=== PATIENT | male | born 1955 | race Caucasian/White ===

== ENCOUNTER → 2021-03-08 | Outpatient (CLI) | payer OTHER ==
[2016-02-25 12:20] VITALS: BP 140/90
[~2021-03-08] MED LIST: COLE1TAB2 PO; FLUO15CR TP; IRBE150T PO; PRAV40TA2 PO; TRAM50TA PO
[2021-03-08 09:32] LABS: CALCIUM 8.5 mg/dL (8.5-10.1); CREATININE 0.9 mg/dL (0.7-1.3); GFR 84.4; POTASSIUM 3.8 mmol/L (3.5-5.1)
[2021-03-08 10:00] LABS: PROTHROMBIN TIME PATIENT 12.7 SEC (11.7-14.0)
[2021-03-08 10:24] LABS: BASO % 0 % (0-3); EOS # 0.1 x10^3/uL (0.0-0.7); EOS % 2 % (0-3); HEMOGLOBIN 16.1 g/dL (13.0-17.5); LYMPH # 1.5 x10^3/uL (1.0-4.8); LYMPH % 19 % (24-48); MEAN CORPUSCULAR HEMOGLOBIN 34 pg (25-35); MEAN CORPUSCULAR HGB CONC 35 g/dL (31-37); MEAN CORPUSCULAR VOLUME 96 fL (79-100); MONO # 0.6 x10^3/uL (0.0-1.1); MONO % 8 % (0-9); NEUT # 5.5 x10^3/uL (1.8-7.7); NEUT % 71 % (31-73); PLATELET COUNT 147 x10^3/uL (140-400); RED BLOOD COUNT 4.78 x10^6/uL (4.30-5.70); RED CELL DISTRIBUTION WIDTH 13.7 % (11.5-14.5); WHITE BLOOD COUNT 7.8 x10^3/uL (4.0-11.0)
--- NOTE | 2021-03-08 12:15 | EKG ---
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
--- NOTE | 2021-03-08 13:19 | RAD ---
EXAM: Chest, 2 views. HISTORY: Hypertension. Preoperative evaluation. COMPARISON: None. FINDINGS: 2 views of the chest are obtained. There is no infiltrate, pleural fusion or pneumothorax. The heart is normal in size. IMPRESSION: No acute pulmonary finding. Electronically signed by: Erika Denney MD (03/08/2021 1:17 PM) [id number]
[2021-03-09 01:10] LABS: HEMOGLOBIN A1C 5.8 % (4.8-5.6)
== END ==
LOC: SURGPAT 11:45
PROVIDERS: ATTEND Orthopaedic Surgery Sports Medicine
DX: Z01.818 Encounter for other preprocedural examination (principal); M16.11 Unilateral primary osteoarthritis, right hip
CPT/HCPCS: 36415; 71046; 80048; 82306; 83036; 85025; 85610; 85651; 85730; 87641; 93005

== ENCOUNTER 2021-03-23 07:19 | Observation (INO) | payer OTHER, MEDICARE ==
[2021-03-11 14:43] VITALS: BP 156/96
[~2021-03-23] VITALS: Ht 182.9 cm; Wt 120.0 kg
[2021-03-23] VITALS (10 sets, daily range): BP systolic 114–168; BP diastolic 61–89
[~2021-03-23 07:19] MED LIST changes: +ACETAMINOPHEN 500 MG TABLET PO PRN; +HYDROmorphone 2 MG/ML VIAL IVP PRN; +MELOXICAM 7.5 MG TABLET PO PRN; +MORPHINE SULFATE 2 MG/ML INJ. IVP PRN; +MORPHINE SULFATE 5 MG, KETOROLAC 30MG VIAL 30 MG, ROPIVacaine 0.5% PF 60 ML, EPINEPHrin... INT ART ONE; +PROCHLORPERAZINE 10 MG/2 ML VIAL. IVP PRN; +TRANEXAMIC ACID 1,000 MG in IV NS 50ML -- 1ST BAG INJ ONE; +TRANEXAMIC ACID in NS IVPB 100 ML ONE; +VANCOMYCIN 1GM IVPB FOR OMNI 250 ML IV PRN; +fentaNYL PF VIAL 100 MCG/2 ML VIAL IVP PRN
[2021-03-23] MEDS ORDERED: 0.9 % SODIUM CHLORIDE 20 ML VIAL. IJ ONE ×2 (07:20)
[2021-03-23] MEDS ORDERED: TRANEXAMIC ACID 1,000 MG in IV NS 50ML -- 2ND BAG INJ ONE (08:00)
[2021-03-23] MEDS: IV RINGERS,LACTATED 1000ML 1,000 ML IV SCH ×2 (08:05→11:50)
[2021-03-23 08:19] LABS: PROTHROMBIN TIME PATIENT 12.7 SEC (11.7-14.0)
[2021-03-23] MEDS ORDERED: ONDANSETRON PF 4 MG/2 ML VIAL. ONE (08:29)
[2021-03-23] MEDS ORDERED: DEXAMETHASONE SOD PHOS 4 MG/ML VIAL ONE (08:29)
[2021-03-23] MEDS ORDERED: fentaNYL PF VIAL 100 MCG/2 ML VIAL ONE (08:29)
[2021-03-23] MEDS ORDERED: PROPOFOL 10 MG/ML (20ML) VIAL. IV ONE (08:29)
[2021-03-23] MEDS ORDERED: ROCURONIUM 50 MG/5 ML VIAL. ONE ×2 (08:29→09:35)
[2021-03-23] MEDS ORDERED: SEVOFLURANE 61 TO 120 MINUTES. IH ONE (08:29)
[2021-03-23] MEDS ORDERED: LIDOCAINE 2% PF 5 ML VIAL. ONE (08:29)
[2021-03-23] MEDS ORDERED: fentaNYL PF VIAL 100 MCG/2 ML VIAL IVP PRN (09:00)
[2021-03-23] MEDS ORDERED: 0.9 % SODIUM CHLORIDE 10 ML DISP.SYRIN. IV PRN (09:00)
[2021-03-23] MEDS ORDERED: CALCIUM CARBONATE 500 MG TAB.CHEW PO PRN (09:00)
[2021-03-23] MEDS ORDERED: MORPHINE SULFATE 2 MG/ML INJ. IVP PRN (09:00)
[2021-03-23] MEDS: MULTIVITAMIN with MINERAL TABLET. PO SCH (09:00)
[2021-03-23] MEDS ORDERED: diphenhydrAMINE 50 MG/ML VIAL IVP PRN (09:00)
[2021-03-23] MEDS ORDERED: traMADol 50 MG TABLET PO PRN (09:00)
[2021-03-23] MEDS ORDERED: ZOLPIDEM 5 MG TABLET. PO PRN (09:00)
[2021-03-23] MEDS ORDERED: METOCLOPRAMIDE HCL 10 MG/2 ML VIAL. IVP PRN (09:00)
[2021-03-23] MEDS ORDERED: PROCHLORPERAZINE 5 MG TABLET. PO PRN (09:00)
[2021-03-23] MEDS ORDERED: DEXTROSE 50% 25 GM / 50ML DISP.SYRIN. IV PRN (09:00)
[2021-03-23] MEDS ORDERED: VANCOMYCIN 1 GM in IV NORMAL SALINE 250ML 250 ML IV ONE ×2 (09:15→21:00)
[2021-03-23] MEDS ORDERED: KETAMINE HCL IN NACL, ISO-OSM 50 MG/5 ML SYRINGE ONE (09:16)
[2021-03-23] MEDS ORDERED: GLYCOPYRROLATE 1 MG/5 ML VIAL. ONE ×2 (09:18→11:01)
[2021-03-23] MEDS ORDERED: HYDROmorphone 2 MG/ML VIAL ONE (09:31)
[2021-03-23] MEDS ORDERED: SUCCINYLCHOLINE 200 MG/10 ML VIAL. ONE (09:57)
[2021-03-23] MEDS: COLESTIPOL HCL 1 GM TABLET PO SCH (10:00)
[2021-03-23] MEDS ORDERED: NEOSTIGMINE METHYLSULFATE 5 MG/5 ML SYRINGE. ONE (10:40)
[2021-03-23] MEDS ORDERED: ESMOLOL 100 MG/10 ML VIAL. IVP ONE (11:14)
--- NOTE | 2021-03-23 11:19 | PDOC4 ---
Operative Note Operative Note Date of procedure: 03/23/2021 Surgeon: Tang Ritter Preoperative diagnosis: Advanced primary right hip degenerative joint disease Postoperative diagnosis: Same Procedure performed: Right total hip arthroplasty Anesthesia: General research study assistant: Jorge Poon Complications: None Findings: Advanced primary degenerative joint disease Blood loss 200 mL Components inserted: Mcclelland [employer]hew R3 shell, 54 mm with a 20 degree acetabular liner, size 6 standard offset anthology stem with a 36+8 Oxinium head Reason for procedure: Patient is a very pleasant 65-year-old gentleman who we have tried injections, physical therapy, anti-inflammatories, and these have not afforded him any relief. He had he has also tried chiropractor care. Because of the limiting nature of his pain and interference in his life and activities of daily living, we discussed the risks, benefits, alternatives to total hip arthroplasty and he elected to proceed. Description of procedure: He was greeted in the preoperative area by myself or the correct extremity was verified and marked. Is taken the operative suite and antibiotics were started as he was brought back. Once in the operating room, he was transferred gently supine to the operating table and secured to the bed with all pressure points padded. He was then repositioned into the lateral decubitus position, resecured to the bed with all pressure points padded including an axillary roll. I then appreciated his leg lengths in this position. After this we placed a nonsterile used plastic drape. The right lower extremity and hip were then prepped and draped in the usual sterile fashion and we conducted our standard preoperative timeout. I then palpated marked surface anatomy and elizabeth a line for my planned posterior lateral incision and incised skin with a scalpel and dissected subcutaneous tissue with electrocautery, cauterizing bleeders as they were encountered. Identified the fascia and used a Falk elevator to sweep aside adherent subcutaneous tissue. I incised fascia in line with the skin incision. After this, I placed my Charnley retractor. I took down the quadratus and piriformis and open the capsule in a T-type incision. I tagged ends of the capsule for later identification and repair. I then dislocated his hip, and made kruse at his greater and lesser trochanters as well center of his femoral head and measured my length and offset. I then elizabeth a line with electrocautery on the femoral neck about 1 cm proximal to the lesser trochanter and then made my femoral neck cut after placing Hohmann retractors around it. I delivered the femoral head from the operative field. I released some more of the superior and inferior capsule for improved visualization. There were a couple loose bodies in the joint. These were removed. I excised the soft tissue from the floor of the acetabulum. I appreciated the transverse acetabular ligament. I took down the labrum and some osteophytes posteriorly. After this, I placed my acetabular retractors into position and began reaming reaming to the above size, I trialed and this had a great fit. I then thor oughly irrigated the operative field and impacted my cup in position ensuring that it was fully seated. I placed a single screw in the posterior column. I then seated my acetabular polyethylene liner after again irrigating, with the elevation directed posteriorly. I then removed my acetabular retractors and repositioned the leg and added a proximal femoral elevator and began with the cookie cutting osteotome, followed by the canal finding reamer followed by the lateralizing reamer. After this I began broaching, I broached up to the above size which gave a really good fit and fill. I then attached the neck and head sizes made some measurements and went up on the head size. I then reduced the hip and he had great range of motion stability and leg length. After this, I dislocated the hip and removed all trial components and then impacted the stem into position after thoroughly irrigating the operative field especially the canal again. I then trialed the head sizes again and selected the above size. I washed and dried the Fry taper region and gently impacted the Oxinium head into position and reduced the hip. I then closed capsule with simple interrupted #2 Ethibond. Piriformis and some capsule also reapproximated to bone. This was through drill tunnels. After this I irrigated out the operative field the final time. I then injected my periarticular mixture. Fascia was then closed with running #2 Quill. Inverted interrupted 0 Vicryl in a multilayered fashion was used for subcutaneous tissue and inverted interrupted 2-0 Vicryl for skin. 4-0 Monocryl in a buried subcuticular fashion was then used. Prior to wound closure, all counts correct x2. No complications. At the conclusion, the leg and hip area were cleansed and dried and an incisional wound VAC was applied. He was then laid supine and transferred gently supine to the hospital bed and taken to PACU in stable and extubated condition. Postoperative plan is to allow weightbearing as tolerated. He will receive DVT and antibiotic prophylaxis. I will follow along with his postoperative course. TANG RITTER II, MD Mar 23, 2021 11:19
[2021-03-23] MEDS: ONDANSETRON ODT 4 MG TAB.RAPDIS. PO SCH ×2 (12:00→18:16)
[2021-03-23] MEDS: ONDANSETRON PF 4 MG/2 ML VIAL. IVP SCH ×2 (12:00→18:00)
--- NOTE | 2021-03-23 12:18 | RAD ---
INDICATION: Reason: post op / Spl. Instructions: / History: COMPARISON: February 2016 IMPRESSION: Pelvis: 3 views of pelvis and right hip. Right hip arthroplasty without periprosthetic fracture or di slocation. Electronically signed by: Javed Olvera MD (03/23/2021 12:16 PM) [id number]
[2021-03-23] MEDS: IV NORMAL SALINE 1000ML BAG 1,000 ML IV SCH (12:26)
[2021-03-23] MEDS ORDERED: TRIAMCINOLONE ACETONIDE 0.5% TOPICAL CREAM 15GM TUBE. TP PRN (12:30)
--- NOTE | 2021-03-23 14:05 | NUR ---
Pt arrived by bed from PACU. Alert and oriented x's 4. Pt anxious to void. Ambulated to bathroom with unsteady gait with walker. Unable to void at this time. Sat in bathroom for 20 minutes and returned back to bed. Encourage pt to increase po fluids and attempt to void again in about 1hr or sooner. Verbalized understanding. Oriented to room and controls. Side rails up x's 2 with call light in reach. Brother at bedside. Cont. monitor.
[2021-03-23] MEDS ORDERED: WARFARIN 7.5 MG TABLET. PO ONE (16:00)
--- NOTE | 2021-03-23 16:00 | NUR ---
Still unable to void. Straight cath and got 700cc of yellow urine. Tolerated the procedure well. Cont. monitor.
[2021-03-23] MEDS: SENNOSIDES/DOCUSATE 8.6/50MG TABLET. PO SCH (18:08)
[2021-03-23] MEDS: oxyCODONE IR 5 MG TABLET PO PRN (18:09)
[2021-03-23] MEDS: FERROUS SULFATE 325 MG TABLET. PO SCH (18:09)
[2021-03-23] MEDS: LOSARTAN POTASSIUM 50 MG TABLET. PO SCH (18:10)
[2021-03-23] MEDS: ATORVASTATIN CALCIUM 10 MG TABLET. PO SCH (21:14)
[2021-03-24] MEDS: oxyCODONE IR 5 MG TABLET PO PRN ×4 (00:59→21:27)
[2021-03-24 03:00] VITALS: BP 141/82
[2021-03-24 04:25] LABS: HEMATOCRIT 40.4 % (39.0-53.0); HEMOGLOBIN 13.7 g/dL (13.0-17.5)
[2021-03-24 04:28] LABS: PROTHROMBIN TIME PATIENT 13.5 SEC (11.7-14.0)
[2021-03-24] MEDS: ONDANSETRON ODT 4 MG TAB.RAPDIS. PO SCH ×2 (06:00)
[2021-03-24] MEDS: ONDANSETRON PF 4 MG/2 ML VIAL. IVP SCH ×2 (06:00)
[2021-03-24] MEDS ORDERED: MAGNESIUM HYDROXIDE 2,400 MG/30 ML ORAL.SUSP. PO PRN (06:00)
[2021-03-24 07:00] VITALS: BP 115/69
[2021-03-24] MEDS: IV NORMAL SALINE 1000ML BAG 1,000 ML IV SCH (07:20)
--- NOTE | 2021-03-24 08:21 | PDOC ---
ORTHO PROGRESS NOTES DATE: 03/24/21 TIME: 08:19 Subjective Some pain, tolerable. No flatus, no N/V. no abd pain Procedure R DEDRA Vitals Vital Signs Date Time Temp Pulse Resp B/P (MAP) Pulse Ox O2 Delivery O2 Flow Rate FiO2 03/24/21 03:00 97.8 112 18 141/82 (101) 94 Room Air 97.8 03/23/21 20:10 2.0 Labs Laboratory Tests Test 03/23/21 08:05 03/24/21 03:20 Prothrombin Time 12.7 SEC (11.7-14.0) 13.5 SEC (11.7-14.0) Prothromb Time International Ratio 1.0 (0.8-1.1) 1.0 (0.8-1.1) Activated Partial Thromboplast Time 31 SEC (24-38) Hemoglobin 13.7 g/dL (13.0-17.5) Hematocrit 40.4 % (39.0-53.0) Mean Corpuscular Hemoglobin Concent 34 g/dL (31-37) Laboratory Tests Test 03/24/21 03:20 Hemoglobin 13.7 g/dL (13.0-17.5) Hematocrit 40.4 % (39.0-53.0) Mean Corpuscular Hemoglobin Concent 34 g/dL (31-37) Prothrombin Time 13.5 SEC (11.7-14.0) Prothromb Time International Ratio 1.0 (0.8-1.1) X-Rays reviewed Notes A and A in chair normal m/s RLE dressing intact and dry Assessment and Plan will keep an eye on his bowel function PT/OT coumadin D/C plan pending, may need rehab as he has stairs at home PALOMA RITTER II, MD Mar 24, 2021 08:21
[2021-03-24] MEDS: ACETAMINOPHEN 500 MG TABLET PO SCH ×4 (09:00→21:26)
[2021-03-24] MEDS: COLESTIPOL HCL 1 GM TABLET PO SCH (09:37)
[2021-03-24] MEDS: MULTIVITAMIN with MINERAL TABLET. PO SCH (09:37)
[2021-03-24] MEDS: SENNOSIDES/DOCUSATE 8.6/50MG TABLET. PO SCH (09:37)
[2021-03-24] MEDS: POLYETHYLENE GLYCOL 3350 17 GM PACKET. PO SCH (09:38)
[2021-03-24] MEDS: FERROUS SULFATE 325 MG TABLET. PO SCH ×2 (09:38→16:58)
[2021-03-24] MEDS: LOSARTAN POTASSIUM 50 MG TABLET. PO SCH (09:38)
[2021-03-24 11:00] VITALS: BP 140/62
[2021-03-24] MEDS ORDERED: ONDANSETRON PF 4 MG/2 ML VIAL. IVP PRN (12:00)
[2021-03-24] MEDS ORDERED: ONDANSETRON ODT 4 MG TAB.RAPDIS. PO PRN (12:00)
[2021-03-24] MEDS ORDERED: BISACODYL 10 MG SUPP.RECT. PR PRN (16:00)
[2021-03-24] MEDS ORDERED: WARFARIN 3 MG TABLET. PO ONE (16:00)
--- NOTE | 2021-03-24 16:19 | NUR ---
Pharmacy Warfarin Dosing Note S:Pharmacy consulted to assist with anticoagulation therapy started 03/23/21 with target INR: 1.6 - 2.5 O:TAMAR GRAVES is a 65 year old M with DEDRA LABS: Last INR: 1.0 Last HGB: 13.7 Last HCT: Last PLT: 13.5 Last dose of 7.5 mg given on 03/23/21 at 1700 Previous Regimen: Vitamin K given: Y Drug Interaction Changes: Ongoing Drug Interactions: A:INR of 1.0 is below desired range. Target range for this patient is: 1.6 - 2.5 P: Warfarin dose: 6 mg Today at 1600 Bridge Therapy: Next INR due IN AM Pharmacy anticoagulation service will continue to follow. JOSE CHAVEZ ROPER [facility], 03/24/21 [id number]
--- NOTE | 2021-03-24 18:24 | PATHOLOGY ---
[facility] Accession Number: [id number] . 01 Material submitted: . femur - RIGHT FEMORAL HEAD. Modifiers: right, head . 01 Clinical history: . R HIP DJD R TOTAL HIP ARTHROPLASTY . 02 Diagnosis: Femoral head, right total hip arthroplasty: - Advanced degenerative arthritis. (JPM:kwadwo; 03/24/2021) QMS 03/24/2021 1420 Local . 02 Electronically signed: . Jose Kuo MD, Pathologist NPI- [id number] . 01 Gross description: . The specimen is received in formalin, labeled "Rivera Gutierrez, right femoral head". Received is a femoral head with attached femoral neck measuring 5.0 x 4.9 x 5.2 cm in greatest dimensions. The articular surface is light hughes-yellow to dark hughes, smooth to roughened, and with signs of eburnation. Sectioning reveals light hughes-yellow and focally hemorrhagic cut surfaces with no grossly distinct nodules or lesions. The specimen is submitted representatively in cassette A1, following decalcification.([facility]; 03/23/2021) [facility] 03/23/2021 1821 Local . 02 Pathologist provided ICD-10: M16.11 . 02 CPT . 374764, [id number] Specimen Comment: A courtesy copy of this report has been sent to [phone] Specimen Comment: [id number] Specimen Comment: Report sent to / DR HYLTON Specimen Comment: A duplicate report has been generated due to demographic updates. Performed at: [address], [place], [place] [id number] MD Brendan Sampson MD Phone: [phone] Performed at: 02 [facility] [address] [place], [place] [id number] MD Jose Kuo MD Phone: [phone]
[2021-03-24 19:00] VITALS: BP 129/66
[2021-03-24] MEDS: ATORVASTATIN CALCIUM 10 MG TABLET. PO SCH (21:26)
[2021-03-24 23:00] VITALS: BP 121/54
[2021-03-25 03:00] VITALS: BP 127/67
[2021-03-25 06:20] LABS: HEMOGLOBIN 12.9 g/dL (13.0-17.5)
[2021-03-25 06:23] LABS: PROTHROMBIN TIME PATIENT 15.4 SEC (11.7-14.0)
[2021-03-25 07:00] VITALS: BP 124/73
--- NOTE | 2021-03-25 07:50 | NUR ---
[facility] done.
[2021-03-25] MEDS: SENNOSIDES/DOCUSATE 8.6/50MG TABLET. PO SCH (08:19)
[2021-03-25] MEDS: ACETAMINOPHEN 500 MG TABLET PO SCH ×4 (08:20→20:33)
[2021-03-25] MEDS: oxyCODONE IR 5 MG TABLET PO PRN ×3 (08:20→20:33)
[2021-03-25] MEDS: FERROUS SULFATE 325 MG TABLET. PO SCH ×2 (08:20→15:42)
[2021-03-25] MEDS: COLESTIPOL HCL 1 GM TABLET PO SCH (08:20)
[2021-03-25] MEDS: MULTIVITAMIN with MINERAL TABLET. PO SCH (08:20)
[2021-03-25] MEDS: LOSARTAN POTASSIUM 50 MG TABLET. PO SCH (08:21)
[2021-03-25] MEDS: POLYETHYLENE GLYCOL 3350 17 GM PACKET. PO SCH (08:21)
[2021-03-25] MEDS: IV NORMAL SALINE 1000ML BAG 1,000 ML IV SCH (08:22)
[2021-03-25 11:09] VITALS: BP 129/68
--- NOTE | 2021-03-25 13:33 | SNU/HH DC ---
DISCHARGE ORDERS DISCHARGE INFORMATION: DISCHARGE DATE: Mar 25, 2021 FINAL DIAGNOSIS advanced primary right hip degenerative joint disease CONDITION ON DISCHARGE: Stable CODE STATUS: Code Status: Full GROUP HOME: SNF STAY <30 DAYS: Yes HOSPICE: HOSPICE: No HOSPICE EVAL & TREAT: No POST DISCHARGE ORDERS: ACTIVITY ORDERS: Activity as tolerated WEIGHT BEARING STATUS: As tolerated BATHING ORDERS: Shower-keep dressing dry DIET AFTER DISCHARGE: Regular WOUND/INCISION CARE: Ice to area for comfort, Keep wound/cast CDI FOLLOW-UP: PHYSICIAN FOLLOW-UP: Hung in 2 wks ANTICOAGULATION F/U NEEDED: per pharmacy TREATMENT/EQUIPMENT ORDERS: ADAPTIVE EQUIPMENT NEEDED: Walker Physical Therapy For: Evalulation/Treatment Occupational Therapy For: Evaluation/Treatment DISCHARGE MEDICATIONS: Home Meds Reported Medications Fluocinonide (FLUOCINONIDE) 15 Gm Cream..g., 1 MEGHAN TP PRN BID PRN for ECZEMA TREATMENT, EACH 03/11/21 Tramadol Hcl (TRAMADOL HCL) 50 Mg Tablet, 50 MG PO Q6HRS PRN for PAIN, TAB 03/11/21 Colestipol Hcl (COLESTIPOL HCL) 1 Gm Tablet, 1 GM PO DAILY 02/25/16 Pravastatin Sodium (PRAVASTATIN SODIUM) 40 Mg Tablet, 1 TAB PO DAILY, #90 TAB 1 Refill 02/25/16 Irbesartan (AVAPRO) 150 Mg Tablet, 150 MG PO DAILY, TAB 02/25/16 PALOMA RITTER II, MD Mar 25, 2021 13:33
--- NOTE | 2021-03-25 13:34 | PDOC ---
ORTHO PROGRESS NOTES DATE: 03/25/21 TIME: 13:33 Subjective He still has some ache in his thigh, but he feels like his pain is better. No bowel or bladder complaints. Tolerating regular diet. Vitals Vital Signs Date Time Temp Pulse Resp B/P (MAP) Pulse Ox O2 Delivery O2 Flow Rate FiO2 03/25/21 12:52 95 Room Air 03/25/21 11:09 98.8 106 129/68 (88) 2.0 98.8 03/25/21 07:00 18 Labs Laboratory Tests Test 03/24/21 03:20 03/24/21 16:50 03/25/21 05:30 Hemoglobin 13.7 g/dL (13.0-17.5) 12.9 g/dL (13.0-17.5) Hematocrit 40.4 % (39.0-53.0) 38.0 % (39.0-53.0) Mean Corpuscular Hemoglobin Concent 34 g/dL (31-37) 34 g/dL (31-37) Prothrombin Time 13.5 SEC (11.7-14.0) 15.4 SEC (11.7-14.0) Prothromb Time International Ratio 1.0 (0.8-1.1) 1.2 (0.8-1.1) SARS-CoV-2 RNA (APPLE) Negative (Negative) Laboratory Tests Test 03/24/21 16:50 03/25/21 05:30 SARS-CoV-2 RNA (APPLE) Negative (Negative) Hemoglobin 12.9 g/dL (13.0-17.5) Hematocrit 38.0 % (39.0-53.0) Mean Corpuscular Hemoglobin Concent 34 g/dL (31-37) Prothrombin Time 15.4 SEC (11.7-14.0) Prothromb Time International Ratio 1.2 (0.8-1.1) Notes He is awake and alert and sitting in a chair. Dressing is intact and dry. Normal motor and sensation present distally Problems: (1) Degenerative joint disease of right hip Assessment and Plan We will plan on discharging him once a bed is available. Okay to weight-bear as tolerated. Follow-up in 2 weeks. Wound care instructions were discussed with he and family. His questions were answered. Problem Qualifiers (1) Degenerative joint disease of right hip: Osteoarthritis type: primary Qualified Codes: M16.11 - Unilateral primary osteoarthritis, right hip PALOMA RITTER II, MD Mar 25, 2021 13:34
[2021-03-25 14:38] VITALS: BP 127/72
--- NOTE | 2021-03-25 14:44 | NUR ---
Pharmacy Warfarin Dosing Note S: Pharmacy consulted to assist with anticoagulation therapy started 03/23/21 O: TAMAR GRAVES is a 65 year old M with DEDRA LABS: Last INR: 1.2 Last HGB: 12.9 Last HCT: 38 Last PLT: 13.5 Last dose of 6MG given on 03/24/21 at 1658 Vitamin K given: Y A:INR of 1.2 is below desired range. Target range for this patient is: 1.6 - 2.5 P: Warfarin dose: 6MG Today at 1600 Bridge Therapy: none+ Next INR due tomorrow Pharmacy anticoagulation service will continue to follow. Milly Gaspar RPH, 03/25/21 0179
[2021-03-25] MEDS ORDERED: WARFARIN 3 MG TABLET. PO ONE (16:00)
[2021-03-25] MEDS ORDERED: WARF-31 PO (17:57)
[2021-03-25] MEDS ORDERED: OXYC5TAB88 PO (17:58)
[2021-03-25 19:15] VITALS: BP 116/62
[2021-03-25] MEDS: ATORVASTATIN CALCIUM 10 MG TABLET. PO SCH (20:33)
[2021-03-25 22:59] VITALS: BP 136/67
[2021-03-26] MEDS: ACETAMINOPHEN 500 MG TABLET PO SCH ×2 (03:03→08:21)
[2021-03-26 03:33] VITALS: BP 145/67
[2021-03-26 06:57] LABS: HEMATOCRIT 35.4 % (39.0-53.0); HEMOGLOBIN 12.3 g/dL (13.0-17.5)
[2021-03-26 07:00] VITALS: BP 160/80
[2021-03-26 07:27] LABS: PROTHROMBIN TIME PATIENT 16.4 SEC (11.7-14.0)
[2021-03-26] MEDS ORDERED: MAGNESIUM HYDROXIDE 2,400 MG/30 ML ORAL.SUSP. PO ONE (07:30)
--- NOTE | 2021-03-26 07:38 | PN ---
DATE: 03/26/2021 DAILY PROGRESS NOTE LOCATION: He is in room 428. SUBJECTIVE: This 65-year-old male is 3 days status post right total hip replacement. He has ongoing soreness. His major limitation at this point in time is getting up and down. He does not feel so bad when he is walking. He also has not had a bowel movement since surgery and is concerned about the same. OBJECTIVE: VITAL SIGNS: Stable. T-max 100.4. GENERAL: He is awake and alert, sitting in chair. CHEST: Clear. HEART: Regular. ABDOMEN: Benign. NEUROVASCULAR: Right leg intact. ASSESSMENT: 1. Status post right total hip replacement. 2. Postop constipation. 3. Ongoing anticoagulation. PLAN: group home. We will give a dose of milk of magnesia this morning to hopefully get the bowels going. He is currently receiving MiraLax. BISHOP DR: Mellissa TID: [id number]
[2021-03-26] MEDS: LOSARTAN POTASSIUM 50 MG TABLET. PO SCH (08:21)
[2021-03-26] MEDS: FERROUS SULFATE 325 MG TABLET. PO SCH (08:21)
[2021-03-26] MEDS: COLESTIPOL HCL 1 GM TABLET PO SCH (08:21)
[2021-03-26] MEDS: SENNOSIDES/DOCUSATE 8.6/50MG TABLET. PO SCH (08:21)
[2021-03-26] MEDS: MULTIVITAMIN with MINERAL TABLET. PO SCH (08:22)
[2021-03-26] MEDS: oxyCODONE IR 5 MG TABLET PO PRN (08:22)
[2021-03-26] MEDS: IV NORMAL SALINE 1000ML BAG 1,000 ML IV SCH (08:24)
[2021-03-26] MEDS: POLYETHYLENE GLYCOL 3350 17 GM PACKET. PO SCH (08:24)
[2021-03-26 10:40] VITALS: BP 111/66
--- NOTE | 2021-03-26 12:01 | NUR ---
Patient left around 1200 per transport to [facility]. Brother at bedside and aware. Dr Persaud, this nurse, and therapy gave patient his discharge education prior to dismissal. ZAID CDI and working properly. IV discontinued without complications. Report called to Jessica at [phone]. Coumadin education also addressed by this nurse prior to discharge. No concerns noted at discharge.
== END 2021-03-26 12:00 ==
LOC: SURG 07:19 → 4 NORTH 08:51 → INTOOBSV 08:51
PROVIDERS: ADMIT Orthopaedic Surgery Sports Medicine; ATTEND Orthopaedic Surgery Sports Medicine
DX: M16.11 Unilateral primary osteoarthritis, right hip (principal); Z20.822 Contact with and (suspected) exposure to COVID-19; M16.7 Other unilateral secondary osteoarthritis of hip; K59.00 Constipation, unspecified; Z79.899 Other long term (current) drug therapy; Z98.890 Other specified postprocedural states; Z79.01 Long term (current) use of anticoagulants
CPT/HCPCS: 27130; 36415; 72170; 85014; 85018; 85610; 85730; 86850; 86900; 86901; 88304; 88311; 97110; 97116; 97150; 97162; 97165; 97530; 97535; A4213; A4930; C1776; G0378; G0379; J0171; J0330; J1100; J1170; J1885; J2270; J2405; J2704; J2710; J2795; J3010; J3370; J3490; J7050; U0003; U0005; 96365; A4223; J7030

== ENCOUNTER → 2021-07-30 | Outpatient (CLI) | payer OTHER ==
[~2021-07-30] MED LIST changes: -ACETAMINOPHEN 500 MG TABLET PO PRN; +BUPIVACAINE MPF 0.5% 10 ML VIAL. IJ ONE; +CONTRAST GIVEN. MC PRN; -HYDROmorphone 2 MG/ML VIAL IVP PRN; +IOHEXOL 300 MG/ML 50 ML VIAL. IJ ONE; +LIDOCAINE 1% Multi-Dose 20 ML VIAL. INJ ONE; -MELOXICAM 7.5 MG TABLET PO PRN; -MORPHINE SULFATE 2 MG/ML INJ. IVP PRN; -MORPHINE SULFATE 5 MG, KETOROLAC 30MG VIAL 30 MG, ROPIVacaine 0.5% PF 60 ML, EPINEPHrin... INT ART ONE; +OXYC5TAB88 PO; -PROCHLORPERAZINE 10 MG/2 ML VIAL. IVP PRN; -TRANEXAMIC ACID 1,000 MG in IV NS 50ML -- 1ST BAG INJ ONE; -TRANEXAMIC ACID in NS IVPB 100 ML ONE; +TRIAMCINOLONE PRES.FREE 40 MG/ML VIAL. INT ART ONE; -VANCOMYCIN 1GM IVPB FOR OMNI 250 ML IV PRN; +WARF-31 PO; -fentaNYL PF VIAL 100 MCG/2 ML VIAL IVP PRN
--- NOTE | 2021-07-30 11:41 | RAD ---
FLUOROSCOPICALLY GUIDED BILATERAL SHOULDER THERAPEUTIC INJECTIONS 1. INDICATION: The patient is a 65 years old Male who presented with bilateral shoulder pain. 2. CONSENT: The risks, benefits, treatment options, potential complications and personnel to be invo lved were discussed (including the risks of radiation exposure, instruments to be used, contrast and anesthesia administration) with the patient. All questions were answered and consent was obtained. Th e patient indicated willingness to proceed. 3. GENERAL: a) Medication Reconciliation: The patient's medications and allergies were reviewed in the [facility] medical record and reconciled to the proposed procedure/treatment. Pre-procedure Sign-in: Safety Checklist Performed Yes b) Positioning: The patient was placed Supine on the fluoroscopy table. c) The shoulders were then sterilely prepped and draped. d) Time Out: A time out was performed immediately prior to procedure start with the nursing, anesthes ia and interventional team, correctly identifying the patient name, date of , procedure, anatomy (including marking of site and side), patient position, procedure consent form, relevant diagnostic and radiology test results, antibiotic administration, safety precautions, and procedure-specific equ ipment needs. e) Anesthesia Type: Local anesthesia: 1% Lidocaine 4. PROCEDURE: a) Procedure Details: First, a 22g spinal needle was inserted into the right glenohumeral joint. 2 m L Omnipaque 300 was injected to confirm intra-articular placement of needle. Contrast was observed to flow into the intra-articular space of the joint without significant resistance. 5 mL of injectate w as administered into the joint. The needle was removed and attention was turned to the left shoulder. Utilizing the same technique, a 22-gauge spinal needle was then inserted into the left glenohumeral joint. 1 mL Omnipaque 300 was injected to confirm intra-articular placement of needle. Contrast was observed to flow into the intra-articular space of the joint without significant resistance. 5 mL of injectate was administered into the joint. The needle was removed. b) Injectate Contents (per shoulder): 1 mL Triamcinolone Acetonide (Kenalog) 40mg/ml 4 mL 0.5% Bupivacaine (Marcaine,Sensorcaine) c) Estimated Blood Loss: 0 mL RADIATION DOSE: Fluoroscopic Radiation Summary: Fluoroscopy Time: 0.4 minutes Number of Images: 2 POST PROCEDURE: a) Hemostasis: Hemostasis was achieved using light manual compression. b) Sign-out: Communication Performed Yes c) Conclusion: The patient was discharged from the radiology department in stable condition. COMPLICATIONS: a) Significant Patient Complication: None If other, explain: b) Complications during the procedure: None If other, explain: 5. RESULTS: Medication was injected into the joints. 6. IMPRESSION: SUCCESSFUL FLUOROSCOPICALLY GUIDED THERAPEUTIC INJECTION OF THE BILATERAL SHOULDERS DE SCRIBED ABOVE. Electronically signed by: Jan Brody DO (07/30/2021 11:39 AM) [id number]
== END | disposition home or self-care (01) ==
LOC: RAD 08:59
PROVIDERS: ATTEND Orthopaedic Surgery Sports Medicine
DX: M25.512 Pain in left shoulder (principal); M25.511 Pain in right shoulder; I10 Essential (primary) hypertension; E78.00 Pure hypercholesterolemia, unspecified; G47.30 Sleep apnea, unspecified; M19.90 Unspecified osteoarthritis, unspecified site; Z87.891 Personal history of nicotine dependence; Z79.899 Other long term (current) drug therapy; Z98.890 Other specified postprocedural states; Z72.89 Other problems related to lifestyle; Z88.0 Allergy status to penicillin
CPT/HCPCS: 20610; 77002; J3301; J3490; Q9967